=== PATIENT | male | born 1940 | race Caucasian/White ===

== ENCOUNTER 2017-01-31 22:59 | Emergency (ER) | payer MEDICARE, BC ==
--- NOTE | 2017-02-01 00:53 | EDM.PDOC ---
ED HPI GENERAL MEDICAL PROBLEM - General Chief Complaint: General Stated Complaint: stroke Time Seen by Provider: 01/31/17 23:00 Source of Information: Reports: Patient History Limitations: Reports: No Limitations - History of Present Illness INITIAL COMMENTS - FREE TEXT/NARRATIVE: Pt is a 76 years male with PMH of tonsillar cancer with Neck dissection and has G-tube feeding for past 11 years now. According to his son, on 01/30/17 around 11 am pt was found sitting on his chair slumped and could not speak, but was breathing normal. He did recover from it gradually over 2and 1/2 hrs. Following which he was fine and doing well. He had no confusion as he came out of the slump. Today around 6Pm when pt's son went to see him, he was again unresponsive , slumped in the chair and not speaking. So his son taught he probably was low on sugar and did feed him through his G-tube and also give him his evening meds and waited, around 10Pm he was awake but did notice some weakness and was not able to walk. Hence he did get him into emergency room 11 PM. In the emergency room he patient is awake and responds appropriately to verbal command. He has slight weakness with raising his right hand and his right leg. He cannot stand on his feet due to weakness. No fever or chills. No nausea or vomiting. No headache. Pt presently responds to verbal commands Onset: Today Onset Date: 02/01/17 Onset Time: 18:00 Location: Reports: Other (right sided weakness) Quality: Reports: Ache Severity: Mild Improves with: Reports: None Worsens with: Reports: None Associated Symptoms: Reports: Cough (chronic for clearing the oral secretions), Weakness. Denies: Confusion, Chest Pain, Fever/Chills, Headaches, Nausea/ Vomiting, Seizure, Shortness of Breath, Syncope Bilateral Generalized Pain Score (Numeric/FACES): 10 - Related Data Allergies Allergy/AdvReac Type Severity Reaction Status Date / Time No Known Allergies Allergy Verified 07/07/16 19:04 Home Meds: Home Meds Clopidogrel Bisulfate [Clopidogrel] 75 mg PO DAILY 04/30/14 [History] Ibuprofen [Ibuprofen] 600 mg PO TID 04/30/14 [History] Lisinopril [Lisinopril] 5 mg PO DAILY 04/30/14 [History] Metoprolol Succinate [Toprol XL 100mg] 100 mg PO DAILY 04/30/14 [History] Morphine [MS Contin] 15 mg PO DAILY PRN 04/30/14 [History] Nut.Sup,Spec.Frm,L-Fr,Iron/Fos [Twocal HN] 237 ml PO DAILY 04/30/14 [History] Simvastatin [Simvastatin] 20 mg PO DAILY 04/30/14 [History] Aspirin 81 mg PO DAILY 07/07/16 [History] Past Medical History - Past Health History Medical/Surgical History: Denies Medical/Surgical History HEENT History: Reports: Hard of Hearing, Impaired Vision Cardiovascular History: Reports: Hypertension Gastrointestinal History: Reports: Other (See Below) Other Gastrointestinal History: GI feeding tube Oncologic (Cancer) History: Reports: Other (See Below) Other Oncologic History: jaw,throat,tonsols, - Infectious Disease History Infectious Disease History: Reports: Chicken Pox, Influenza, Measles, Mumps - Past Surgical History Respiratory Surgical History: Reports: Tracheostomy Social & Family History - Tobacco Use Smoking Status *Q: Current Every Day Smoker Years of Tobacco use: 64 Packs/Tins Daily: 1 Used Tobacco, but Quit: No Second Hand Smoke Exposure: Yes - Alcohol Use Days Per Week of Alcohol Use: 0 - Recreational Drug Use Recreational Drug Use: No Drug Use in Last 12 Months: No ED ROS GENERAL - Review of Systems Review Of Systems: See Below Constitutional: Denies: Fever, Chills HEENT: Denies: Contact Lenses, Sinus Problem, Throat Pain, Throat Swelling Respiratory: Reports: Cough, Sputum. Denies: Shortness of Breath, Wheezing, Pleuritic Chest Pain Cardiovascular: Denies: Chest Pain, Lightheadedness Endocrine: Denies: Fatigue GI/Abdominal: Reports: Other (He does have a G tube in place, functioning well.) . Denies: Abdominal Pain, Constipation, Diarrhea, Nausea, Vomiting : Denies: Dysuria, Flank Pain Musculoskeletal: Denies: Joint Pain, Joint Swelling ED EXAM, GENERAL - Physical Exam Exam: See Below Exam Limited By: No Limitations General Appearance: Alert, WD/WN, No Apparent Distress, Other (Pt does have facial deformity post surgical from his tonsillar cancer surgery.) Eye Exam: Bilateral Eye: EOMI, PERRL Ears: Normal External Exam, Normal Canal, Hearing Grossly Normal, Normal TMs Nose: Normal Inspection, Normal Mucosa, No Blood Throat/Mouth: Normal Inspection, Normal Lips, Normal Teeth, Normal Gums, Normal Oropharynx, Normal Voice, No Airway Compromise Head: Atraumatic, Normocephalic Neck: Normal Inspection, Supple, Non-Tender, Full Range of Motion Respiratory/Chest: No Respiratory Distress, Lungs Clear, Normal Breath Sounds, No Accessory Muscle Use, Chest Non-Tender Cardiovascular: Normal Peripheral Pulses, Regular Rate, Rhythm, No Edema, No Gallop, No JVD, No Rub, Systolic Murmur (3/6 heard all over the precardium) GI/Abdominal: Normal Bowel Sounds, Soft, Other (G-tube in place and functional) . No: Guarding, Rigid, Rebound Extremities: Normal Inspection, Normal Range of Motion, Non-Tender, Normal Capillary Refill, Pedal Edema (b/l Pitting type) Neurological: Alert, Oriented, CN II-XII Intact, Normal Cognition, Abnormal Gait (Cannot bear weight due to weakness), Sensory/Motor Deficit (Pt does have weakness in the righthand bucket hooker. Also grade 3/5 strenght inhis his right upper and lower extremities. Reflxes slightly hyperreflexic in the right upper and lower extremity. Pt cannot stand on the feet, due to weakness.). No: Confused, Disoriented EKG INTERPRETATION EKG Date: 02/01/17 Rhythm: NSR [place]: Normal P-Wave: Present QRS: Normal ST-T: Normal QT: Normal Course - Vital Signs Text/Narrative:: Pt presented to the emergency room with right sided hemiparesis with slurred speech. His Ct head was done immediately and was negative for acute injury. Pt' s CBC showed normal WBC. His hemoglobin is 9 with Hematocrit of 28. His hemoglobin has been low for sometime. His CMP shows normal electrolytes , but his creat is mild elevated at 1.1 and his BUN is 55. Albumin is low at 2.2. EKG is in NSR . By the time all the workup was done and pt was reevaluated, patient's speech was improving. so his neuro exam was repeated. his strength in the right upper extremity had improved, had good have bucket hooker and moving arm against resistance. also he was able to stand and bear weight on the feet and also walk. This is when I discussed what is going on with patient and his children that he might have had TIA which has completely resolved and explained what exactly TIA means( Ministroke in laymen term). Also on further discussing, pt's son did claims that patient has seen Vascular surgeon, who has scanned his neck vessels and told that he is not getting enough blood into his brain. Hence my concern was if he is developing TIA from carotid atherosclerosis. As pt has had 2 episode in 2 days, I did call [facility] to discuss with neurologist, but there is no neurologist college admissions counselor. Hence Called [facility] and discussed with Dr. Knox the neurologist college admissions counselor. He does agree that pt probably has had TIAs. Considering that patient is already on plavix, aspirin and statin therapy, felt he has been on maximized medical management. And after discussing his carotid issues, recommended that patient could be admitted and monitored at [facility] and get Carotid Doppler done here. But the earliest Doppler can be done here is on afternoon. Concern during that period, is patient's risk or TIA or stroke, hence Dr. Knox did recommend sending patient down to [facility] for workup and have both Neuro evaluation and Vascular surgeon evaluation. He advised to call hospitalist and have patient admitted if patient prefers to go to [facility]. Options were discussed with patient and his 3 son's they prefer him transferred and have his work up done. I did call the hospitalist college admissions counselor and he did agree to accept patient. Further care as per and Dr. Knox. Pt transferred by [facility] ambulance service.Pt is neurologically intact and hemodynamically stable at the time of transfer. Last Recorded V/S: Last Vital Signs Temp 97.8 F 01/31/17 23:06 Pulse 76 01/31/17 23:06 Resp 18 01/31/17 23:06 BP 189/62 H 01/31/17 23:06 Pulse Ox 95 01/31/17 23:06 - Orders/Labs/Meds Orders: Active Orders 24 hr Category Date Time Status EKG Documentation Completion [RC] ASDIRECTED Care 01/31/17 23:05 Active Head wo Cont [CT] Stat Exams 01/31/17 23:05 Taken Labs: Laboratory Tests 01/31/17 01/31/17 Range/Units 23:15 23:15 WBC 8.9 D (4.0-11.0) K/uL RBC 2.86 L (4.50-6.50) M/uL Hgb 9.0 L (13.0-18.0) g/dL Hct 28.8 L (40.0-54.0) % MCV 101 H (76-96) fL MCH 31.5 (27.0-32.0) pg MCHC 31.3 (31.0-35.0) g/dL RDW 13.9 (11.0-16.0) % Plt Count 247 D (150-400) K/uL MPV 12.9 H (6.0-10.0) fL Neut % (Auto) 75.2 H (45.0-70.0) % Lymph % (Auto) 13.6 L (20.0-40.0) % [place] % (Auto) 10.7 H (3.0-10.0) % Eos % (Auto) 0.3 L (1.0-5.0) % Baso % (Auto) 0.2 (0.0-0.5) % Neut # (Auto) 6.67 (2.00-7.50) K/uL Lymph # (Auto) 1.21 L (1.50-4.00) K/uL [place] # (Auto) 0.95 H (0.20-0.80) K/uL Eos # (Auto) 0.03 L (0.04-0.40) K/uL Baso # (Auto) 0.02 (0.02-0.10) K/uL Sodium 143 (136-145) mmol/L Potassium 4.3 (3.5-5.1) mmol/L Chloride 103 (98-107) mmol/L Carbon Dioxide 30.4 (21.0-32.0) mmol/L Anion Gap 13.9 (5.0-15.0) mmol/L BUN 55 H* D (8-26) mg/dL Creatinine 1.10 D (0.70-1.30) mg/dL Est Cr Clr Drug Dosing 57.73 mL/min Estimated GFR (MDRD) > 60 (>60) MLS/MIN BUN/Creatinine Ratio 50.0 H (6-25) Glucose 88 (74-100) mg/dL Calcium 9.9 D (8.5-10.1) mg/dL Total Bilirubin 0.5 (0.0-1.0) mg/dL AST 33 (15-37) U/L ALT 24 (12-78) U/L Alkaline Phosphatase 96 (46-116) U/L Total Protein 7.8 (6.4-8.2) g/dL Albumin 2.2 L (3.4-5.0) g/dL Globulin 5.6 H (2.2-4.2) g/dL Albumin/Globulin Ratio 0.4 L (0.8-2.0) Departure - Departure Time of Disposition: 01:35 Disposition: DC/Tfer to Acute Hospital 02 Condition: Fair Clinical Impression: Transient ischemic attack - Discharge Information Forms: ED Department Discharge - Problem List & Annotations (1) Transient ischemic attack SNOMED Code(s): 270186460, 512108178 Code(s): G45.9 - TRANSIENT CEREBRAL ISCHEMIC ATTACK, UNSPECIFIED Status: Acute Current Visit: Yes - Problem List Review Problem List Initiated/Reviewed/Updated: Yes - My Orders Last 24 Hours: My Active Orders 01/31/17 23:05 EKG Documentation Completion [RC] ASDIRECTED Head wo Cont [CT] Stat - Assessment/Plan Last 24 Hours: My Active Orders 01/31/17 23:05 EKG Documentation Completion [RC] ASDIRECTED Head wo Cont [CT] Stat Assessment:: Recurrent TIA Hypoalbuminemia Altered renal function. Plan: Pt presented to the emergency room with right sided hemiparesis with slurred speech. His Ct head was done immediately and was negative for acute injury. Pt' s CBC showed normal WBC. His hemoglobin is 9 with Hematocrit of 28. His hemoglobin has been low for sometime. His CMP shows normal electrolytes , but his creat is mild elevated at 1.1 and his BUN is 55. Albumin is low at 2.2. EKG is in NSR . By the time all the workup was done and pt was reevaluated, patient's speech was improving. so his neuro exam was repeated. his strength in the right upper extremity had improved, had good have bucket hooker and moving arm against resistance. also he was able to stand and bear weight on the feet and also walk. This is when I discussed what is going on with patient and his children that he might have had TIA which has completely resolved and explained what exactly TIA means( Ministroke in laymen term). Also on further discussing, pt's son did claims that patient has seen Vascular surgeon, who has scanned his neck vessels and told that he is not getting enough blood into his brain. Hence my concern was if he is developing TIA from carotid atherosclerosis. As pt has had 2 episode in 2 days, I did call [facility] to discuss with neurologist, but there is no neurologist college admissions counselor. Hence Called [facility] and discussed with Dr. Knox the neurologist college admissions counselor. He does agree that pt probably has had TIAs. Considering that patient is already on plavix, aspirin and statin therapy, felt he has been on maximized medical management. And after discussing his carotid issues, recommended that patient could be admitted and monitored at [facility] and get Carotid Doppler done here. But the earliest Doppler can be done here is on afternoon. Concern during that period, is patient's risk or TIA or stroke, hence Dr. Knox did recommend sending patient down to [facility] for workup and have both Neuro evaluation and Vascular surgeon evaluation. He advised to call hospitalist and have patient admitted if patient prefers to go to [facility]. Options were discussed with patient and his 3 son's they prefer him transferred and have his work up done. I did call the hospitalist college admissions counselor and he did agree to accept patient. Further care as per and Dr. Knox. Pt transferred by [facility] ambulance service.Pt is neurologically intact and hemodynamically stable at the time of transfer.
[2017-02-01 01:28] VITALS: BP 167/56
--- NOTE | 2017-02-01 09:06 | CT ---
DATE OF SERVICE: 01/31/17 CLINICAL DATA: CVA UNENHANCED BRAIN CT: Multi slice acquisition through the brain without IV contrast was performed. There is diffuse cerebral atrophy. There are extensive periventricular lucencies bilaterally, consistent with small vessel ischemic change. No masses or mass effect. No intracranial hemorrhage. No evidence of acute or subacute infarct. There is mucosal thickening in the ethmoid and right maxillary sinuses, consistent with chronic sinusitis. No fractures. IMPRESSION: No acute intracranial abnormalities. [id number] [facility]
== END 2017-02-01 01:35 ==
LOC: LB.ED 22:59
DX: G45.9 Transient cerebral ischemic attack, unspecified (principal); I10 Essential (primary) hypertension; Z79.02 Long term (current) use of antithrombotics/antiplatelets; Z79.82 Long term (current) use of aspirin; Z79.1 Long term (current) use of non-steroidal anti-inflammatories (NSAID); Z79.899 Other long term (current) drug therapy; Z93.1 Gastrostomy status; Z85.89 Personal history of malignant neoplasm of other organs and systems
CPT/HCPCS: 36415; 70450; 80053; 85025; 93005; 99285; 99285-25